=== PATIENT | male | born 1980 | race African-American/Black ===

== ENCOUNTER 2017-04-12 10:50 | Emergency (ER) | payer OTHER ==
[~2017-04-12] VITALS: Ht 175.3 cm; Wt 83.0 kg
[2017-04-12 11:05] VITALS: Ht 175.3 cm; Wt 83.0 kg
[2017-04-12 11:50] LABS: BASOPHIL % 0.9 % (0-2); PLATELET COUNT 239 x10^3mcL (130-400)
[2017-04-12 12:00] LABS: CALCIUM 8.9 mg/dL (8.5-10.1); CARBON DIOXIDE 30.2 mmol/L (21-32); CHLORIDE SERUM 105 mmol/L (98-107); CREATININE SERUM 1.2 mg/dL (0.7-1.3); GFR1 > 60 mL/min; GLUCOSE SERUM 94 mg/dL (74-106); POTASSIUM SERUM 4.5 mmol/L (3.5-5.1); SODIUM SERUM 140 mmol/L (136-145)
[2017-04-12] MEDS ORDERED: AUBAGIO7 MG (12:21)
[2017-04-12 12:37] VITALS: BP 133/90
[2017-04-12 13:40] LABS: CHOLESTEROL/HDL RATIO 3.4; MAGNESIUM 1.9 mg/dL (1.8-2.4); PHOSPHOROUS 3.3 mg/dL (2.5-4.9)
[2017-04-12 14:06] LABS: FREE T4 0.85 ng/dL (0.76-1.46); FREE THYROXINE INDEX 2.2 ug/dL (1.4-4.5)
[2017-04-12 14:19] LABS: T3 TOTAL 1.02 ng/mL
== END 2017-04-12 12:37 | disposition left against medical advice (07) ==
LOC: ED 10:50 → DU 12:15 → ED 12:37
PROVIDERS: Emergency Medicine; Family Medicine
DX: G35 Multiple sclerosis (principal)
CPT/HCPCS: 36415; 83880; 84439